=== PATIENT | male | born 1975 | race Caucasian/White ===

== ENCOUNTER 2018-11-24 11:45 | Emergency (ER) | payer OTHER ==
[2018-11-24] MEDS ORDERED: KETOROLAC 30 MG/ML INJ ONE (12:13)
--- NOTE | 2018-11-24 13:05 | EDPHYS ---
Physician Documentation [facility] Name: Alfonso Nugent Age: 43 yrs Sex: Male : 1975 Arrival Date: 11/24/2018 Time: 11:48 Bed 14 Private MD: ED Physician Isaac Desir HPI: 11/24 12:58 This 43 yrs old Male presents to ER via Ambulatory with complaints of Back snw Pain. 12:58 The patient presents with pain that is acute, with no known mechanism of injury. The snw symptoms are located in the right scapular area. Onset: The symptoms/episode began/occurred suddenly, yesterday. The pain does not radiate. Associated signs and symptoms: Pertinent positives: none. The problem was sustained from unknown cause. Severity of symptoms: At their worst the symptoms were moderate, severe. The patient has not experienced similar symptoms in the past. The patient has not recently seen a physician. Historical: - Allergies: 11:53 No Known Allergies; la1 - PMHx: 11:53 None; la1 - Immunization history:: Adult Immunizations up to date. - Social history:: Smoking status: Patient/guardian denies using tobacco. - Ebola Screening: : No symptoms or risks identified at this time. ROS: 12:21 Constitutional: Negative for fever, chills, and weight loss, Eyes: Negative for injury, snw pain, redness, and discharge, ENT: Negative for injury, pain, and discharge, Neck: Negative for injury, pain, and swelling, Cardiovascular: Negative for chest pain, palpitations, and edema, Respiratory: Negative for shortness of breath, cough, wheezing, and pleuritic chest pain, Abdomen/GI: Negative for abdominal pain, nausea, vomiting, diarrhea, and constipation, : Negative for injury, bleeding, discharge, and swelling, MS/Extremity: Negative for injury and deformity, Skin: Negative for injury, rash, and discoloration, Neuro: Negative for headache, weakness, numbness, tingling, and seizure. 12:21 Back: Positive for pain with movement, pain on deep inspiration to right upper back, increased pain with abduction of upper extremity. Exam: 12:19 Constitutional: This is a well developed, well nourished patient who is awake, alert, snw and in no acute distress. Head/Face: Normocephalic, atraumatic. Eyes: Pupils equal round and reactive to light, extra-ocular motions intact. Lids and lashes normal. Conjunctiva and sclera are non-icteric and not injected. Cornea within normal limits. Periorbital areas with no swelling, redness, or edema. ENT: Nares patent. No nasal discharge, no septal abnormalities noted. Tympanic membranes are normal and external auditory canals are clear. Oropharynx with no redness, swelling, or masses, exudates, or evidence of obstruction, uvula midline. Mucous membranes moist. Neck: Trachea midline, no thyromegaly or masses palpated, and no cervical lymphadenopathy. Supple, full range of motion without nuchal rigidity, or vertebral point tenderness. No Meningismus. Chest/axilla: Normal chest wall appearance and motion. Nontender with no deformity. No lesions are appreciated. Cardiovascular: Regular rate and rhythm with a normal S1 and S2. No gallops, murmurs, or rubs. Normal PMI, no JVD. No pulse deficits. Abdomen/GI: Soft, non-tender, with normal bowel sounds. No distension or tympany. No guarding or rebound. No evidence of tenderness throughout. Back: No spinal tenderness. No costovertebral tenderness. Full range of motion. Skin: Warm, dry with normal turgor. Normal color with no rashes, no lesions, and no evidence of cellulitis. MS/ Extremity: Pulses equal, no cyanosis. Neurovascular intact. Full, normal range of motion. Neuro: Awake and alert, GCS 15, oriented to person, place, time, and situation. Cranial nerves II-XII grossly intact. Motor strength 5/5 in all extremities. Sensory grossly intact. Cerebellar exam normal. Normal gait. Psych: Awake, alert, with orientation to person, place and time. Behavior, mood, and affect are within normal limits. 12:19 Respiratory: the patient does not display signs of respiratory distress, Respirations: normal, Breath sounds: + upper airway congestion. + cough, pain on deep inspiration to upper right back, pain with flexion. Vital Signs: 11:53 BP 140 / 100; Pulse 89; Resp 16; Temp 98.4; Pulse Ox 100% on R/A; Weight 79.83 kg; la1 Height 5 ft. 11 in. (180.34 cm); 13:26 BP 131 / 98; Pulse 88; Resp 17 S; Pulse Ox 100% ; ca1 11:53 Body Mass Index 24.55 (79.83 kg, 180.34 cm) la1 MDM: 12:01 Patient medically screened. snw 13:06 Data reviewed: vital signs, nurses notes. Data interpreted: Pulse oximetry: on room air snw is 100 %. Interpretation: normal. Counseling: I had a detailed discussion with the patient and/or guardian regarding: the historical points, exam findings, and any diagnostic results supporting the discharge/admit diagnosis, the presence of at least one elevated blood pressure reading (>120/80) during this emergency department visit, radiology results, the need for outpatient follow up, to return to the emergency department if symptoms worsen or persist or if there are any questions or concerns that arise at home. Special discussion: I have referred the patient to see his PCP for further evaluation of high blood pressure. Based on the history and exam findings, there is no indication for further emergent testing or inpatient evaluation. I discussed with the patient/guardian the need to see the primary care provider for further evaluation of the symptoms. 11/24 12:09 Order name: Chest Pa And Lat (2 Views) XRAY snw 11/24 12:21 Order name: EKG; Complete Time: 12:21 snw 11/24 12:21 Order name: EKG - Nurse/Tech; Complete Time: 13:12 snw Administered Medications: 12:16 Drug: TORadol 30 mg Route: IM; Site: left deltoid; ca1 13:27 Follow up: Response: No adverse reaction; Pain is decreased ca1 Disposition: 11/24/18 13:04 Discharged to Home. Impression: Costochondritis. - Condition is Stable. - Discharge Instructions: Back Pain, Adult, Costochondritis, Shoulder Range of Motion Exercises, Cryotherapy, Heat Therapy. - Prescriptions for Diclofenac Sodium 75 mg Oral Tablet Sustained Release - take 1 tablet by ORAL route 2 times per day; 30 tablet. orphenadrine citrate 100 mg Oral Tablet Sustained Release - take 1 tablet by ORAL route 2 times per day As needed; 20 tablet. - Medication Reconciliation Form, Thank You Letter, Antibiotic Education, Prescription Opioid Use form. - Follow up: Private Physician; When: 2 - 3 days; Reason: Recheck today's complaints, Continuance of care, Re-evaluation by your physician. Follow up: Emergency Department; When: As needed; Reason: Worsening of condition. Addendum: 11/26/2018 09:09 Co-signature as Attending Physician, Isaac Desir MD I agree with the assessment and [place] plan of care. Signatures: Dispatcher [employer] Isaac Ricardo MD MD cha Therrien, Shelly, WOOL PULLER-C WOOL PULLER-Csnw Jaciel Wan RN RN la1 Di Fabian RN RN ca1 Corrections: (The following items were deleted from the chart) 11/24 13:28 13:04 11/24/2018 13:04 Discharged to Home. Impression: Costochondritis. Condition is ca1 Stable. Forms are Medication Reconciliation Form, Thank You Letter, Antibiotic Education, Prescription Opioid Use. Follow up: Private Physician; When: 2 - 3 days; Reason: Recheck today's complaints, Continuance of care, Re-evaluation by your physician. Follow up: Emergency Department; When: As needed; Reason: Worsening of condition. snw
--- NOTE | 2018-11-24 13:05 | ER ---
Nurse's Notes [facility] Name: Alfonso Nugent Age: 43 yrs Sex: Male : 1975 Arrival Date: 11/24/2018 Time: 11:48 Bed 14 Private MD: Diagnosis: Costochondritis Presentation: 11/24 11:51 Presenting complaint: Patient states: I am having pain in my upper back, it hurts when la1 I take a deep breath, bend over to stretch, or move my right arm. Transition of care: patient was not received from another setting of care. Onset of symptoms was November 24, 2018. Risk Assessment: Do you want to hurt yourself or someone else? Patient reports no desire to harm self or others. Initial Sepsis Screen: Does the patient meet any 2 criteria? No. Patient's initial sepsis screen is negative. Does the patient have a suspected source of infection? No. Patient's initial sepsis screen is negative. Care prior to arrival: None. 11:51 Method Of Arrival: Ambulatory la1 11:51 Acuity: YARY 3 la1 Historical: - Allergies: 11:53 No Known Allergies; la1 - PMHx: 11:53 None; la1 - Immunization history:: Adult Immunizations up to date. - Social history:: Smoking status: Patient/guardian denies using tobacco. - Ebola Screening: : No symptoms or risks identified at this time. Screenin:15 Abuse screen: Denies threats or abuse. Denies injuries from another. Nutritional ca1 screening: No deficits noted. Tuberculosis screening: No symptoms or risk factors identified. Fall Risk None identified. Assessment: 12:15 General: Appears in no apparent distress. comfortable, Behavior is calm, cooperative, ca1 appropriate for age. Pain: Complains of pain in right scapular area and right subscapular area Pain does not radiate. Pain currently is 9 out of 10 on a pain scale. Quality of pain is described as sharp, Pain began 1 day ago. Neuro: Level of Consciousness is awake, alert, obeys commands, Oriented to person, place, time, situation. Cardiovascular: Heart tones S1 S2 present Capillary refill < 3 seconds Patient's skin is warm and dry. Respiratory: Airway is patent Respiratory effort is even, unlabored, Respiratory pattern is regular, symmetrical, Breath sounds are clear bilaterally. GI: Abdomen is flat, non-distended, Bowel sounds present X 4 quads. Abd is soft and non tender X 4 quads. 12:15 : No deficits noted. No signs and/or symptoms were reported regarding the ca1 genitourinary system. EENT: No deficits noted. No signs and/or symptoms were reported regarding the EENT system. Derm: Skin is intact, is healthy with good turgor, Skin is pink, warm \T\ dry. Musculoskeletal: Circulation, motion, and sensation intact. Capillary refill < 3 seconds, Range of motion: intact in all extremities. 13:26 Reassessment: Patient appears in no apparent distress at this time. Patient is alert, ca1 oriented x 3, equal unlabored respirations, skin warm/dry/pink. Patient states feeling better. Vital Signs: 11:53 BP 140 / 100; Pulse 89; Resp 16; Temp 98.4; Pulse Ox 100% on R/A; Weight 79.83 kg; la1 Height 5 ft. 11 in. (180.34 cm); 13:26 BP 131 / 98; Pulse 88; Resp 17 S; Pulse Ox 100% ; ca1 11:53 Body Mass Index 24.55 (79.83 kg, 180.34 cm) la1 ED Course: 11:48 Patient arrived in ED. mr 11:52 Triage completed. la1 11:53 Arm band placed on right wrist. la1 12:01 [facility]vrose Brown [facility]C [facility]. snw 12:01 Isaac Desir MD is Attending Physician. snw 12:09 Di Fabian, BRAEDEN is Primary Nurse. ca1 12:15 Patient has correct armband on for positive identification. Bed in low position. Call ca1 light in reach. Side rails up X 1. Pulse ox on. NIBP on. Warm blanket given. 12:15 No provider procedures requiring assistance completed. Patient did not have IV access ca1 during this emergency room visit. 12:30 Chest Pa And Lat (2 Views) XRAY In Process Unspecified. EDMS 13:13 EKG done, by ED staff. lt1 Administered Medications: 12:16 Drug: TORadol 30 mg Route: IM; Site: left deltoid; ca1 13:27 Follow up: Response: No adverse reaction; Pain is decreased ca1 Outcome: 13:04 Discharge ordered by . snw 13:27 Discharged to home ambulatory. ca1 13:27 Condition: stable 13:27 Discharge instructions given to patient, Instructed on discharge instructions, follow up and referral plans. medication usage, Demonstrated understanding of instructions, follow-up care, medications, Prescriptions given X 2. 13:28 Patient left the ED. ca1 Signatures: Dispatcher [employer] EDMS Yvrose Brown, NARGIS-C CONSUMER SCIENCE TEACHER-Verena ChipYara mr Jaciel Wan RN RN la1 Di Fabian RN RN ca1 Sondra Beckett 1
--- NOTE | 2018-11-24 13:26 | RAD REPORT ---
EXAM DESCRIPTION: Karol Rojas (2 Views)11/24/2018 12:32 pm CLINICAL HISTORY: Chest pain COMPARISON: None FINDINGS: The entire left lateral costophrenic sulcus is not included in the field of view and is no t evaluated. The visualized lungs appear clear. The heart is normal size
--- NOTE | 2018-11-25 08:08 | EKG ---
Test Date: 2018-11-24 Test Time: 13:08:43 [employer]neyman Meat [employer]: KELLT MEASUREMENT RESULTS: Intervals: Rate: 73 NH: 142 QRSD: 92 QT: 378 QTc: 416 [place]: P: 65 NH: 142 QRS: 72 T: 57 INTERPRETIVE STATEMENTS: Normal sinus rhythm Normal ECG No previous ECG available for comparison Electronically Signed On 11-25-18 08:06:56 CDT by River Burks
== END 2018-11-24 13:28 | disposition home or self-care (01) ==
LOC: ER 11:45
DX: M94.0 Chondrocostal junction syndrome [Tietze] (principal)
CPT/HCPCS: 71046; 93005; 96372; 99284

== ENCOUNTER 2022-11-12 13:22 | Emergency (ER) | payer OTHER ==
[2022-11-12] MEDS ORDERED: DIAZEPAM 5 MG TABLET ONE (14:52)
[2022-11-12] MEDS ORDERED: TDAP (DIPHTH,PERTUSS(ACELL),TET VAC) 0.5 ML VIAL IMVAC ONE (14:52)
[2022-11-12] MEDS ORDERED: HYDROCODONE/APAP 7.5/325 MG TAB ONE (14:52)
[2022-11-12 15:31] LABS: Absolute Lymphocytes (CBC) 1.8 K/uL (0.7-4.9); Hematocrit 45.5 % (39.6-49.0); Lymphocytes % 11.8 % (15.3-44.8); MCV 83.2 fL (80-100); MPV 9.2 fL (7.6-11.3); Platelets 250 thou/uL (152-406); RBC Red Blood Cell Count 5.47 M/uL (4.33-5.43)
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
[2022-11-12 15:54] LABS: Potassium 3.8 mEq/L (3.5-5.1); Troponin High Sensitivity 4.2 pg/mL (<58.9)
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
[2022-11-12 16:57] VITALS: TEMP 98.9
[2022-11-12 16:59] VITALS: BP 161/102; O2SAT 97
== END 2022-11-12 16:51 | disposition home or self-care (01) ==
LOC: ER 13:22
DX: S22.21XA Fracture of manubrium, initial encounter for closed fracture (principal); S80.212A Abrasion, left knee, initial encounter; V19.3XXA Pedal cyclist (driver) (passenger) injured in unspecified nontraffic accident, initial encounter; Y93.55 Activity, bike riding; Y92.89 Other specified places as the place of occurrence of the external cause; Z23 Encounter for immunization
CPT/HCPCS: 36415; 70450; 71250; 72125; 80048; 84484; 85025; 86850; 86900; 86901; 96372; 99285